=== PATIENT | male | born 1970 | race Caucasian/White ===

== ENCOUNTER 2017-09-22 11:29 | Emergency (ER) | payer BC ==
[~2017-09-22] VITALS: Ht 177.8 cm; Wt 98.9 kg
[2017-09-22 11:36] VITALS: Ht 177.8 cm; Wt 98.9 kg
[2017-09-22 12:38] LABS: BASOPHIL % 0.3 % (0-2); PLATELET COUNT 237 x10^3mcL (130-400)
[2017-09-22 12:44] LABS: RED CELL DISTRIBUTION WIDTH 14.7 % (11.5-14.5)
[2017-09-22 12:49] LABS: CALCIUM 8.5 mg/dL (8.5-10.1); CHLORIDE SERUM 106 mmol/L (98-107); CREATININE SERUM 0.9 mg/dL (0.7-1.3); GFR1 > 60 mL/min; GLUCOSE SERUM 94 mg/dL (74-106); POTASSIUM SERUM 4.1 mmol/L (3.5-5.1); SODIUM SERUM 141 mmol/L (136-145)
[2017-09-22 15:02] LABS: T3 TOTAL 1.14 ng/mL
[2017-09-22 15:08] LABS: CHOLESTEROL/HDL RATIO 4.1; MAGNESIUM 2.2 mg/dL (1.8-2.4); PHOSPHOROUS 2.6 mg/dL (2.5-4.9)
[2017-09-22 16:01] LABS: FREE T4 1.18 ng/dL (0.76-1.46); FREE THYROXINE INDEX 3.2 ug/dL (1.4-4.5); T4(THYROXINE) 9.7 ug/dL (4.7-13.3)
[2017-09-22 17:08] VITALS: BP 126/72
== END 2017-09-22 17:08 | disposition home or self-care (01) ==
LOC: ED 11:29 → DU 12:33 → ED 12:33
PROVIDERS: Emergency Medicine; Family Medicine Sports Medicine
DX: T78.3XXA Angioneurotic edema, initial encounter (principal)
CPT/HCPCS: 83880; 84439; J0171; J1200; J2930; J7030; Q0092

== ENCOUNTER 2018-01-05 08:30 | Emergency (ER) | payer BC ==
[~2018-01-05] VITALS: Ht 175.3 cm; Wt 99.8 kg
[2018-01-05 08:34] VITALS: Ht 175.3 cm; Wt 99.8 kg
[2018-01-05 12:27] VITALS: BP 140/70
== END 2018-01-05 12:27 | disposition home or self-care (01) ==
LOC: ED 08:30
DX: T78.3XXA Angioneurotic edema, initial encounter (principal); R22.0 Localized swelling, mass and lump, head
CPT/HCPCS: J0171; J1200; J2930; J3490; J7030; J7613; J7644

== ENCOUNTER 2018-12-05 06:42 | Emergency (ER) | payer SELFPAY ==
[~2018-12-05] VITALS: Ht 177.8 cm; Wt 98.0 kg
[2018-12-05 06:47] VITALS: Ht 177.8 cm; Wt 98.0 kg
[2018-12-05 09:17] VITALS: BP 135/80
== END 2018-12-05 09:17 | disposition home or self-care (01) ==
LOC: ED 06:42
DX: T78.3XXA Angioneurotic edema, initial encounter (principal); E66.9 Obesity, unspecified; Z68.30 Body mass index [BMI] 30.0-30.9, adult
CPT/HCPCS: J0171; J1200; J2930; J3490